=== PATIENT | male | born 1995 | race African-American/Black ===

== ENCOUNTER 2017-08-16 00:43 | Emergency (ER) | payer OTHER ==
[~2017-08-16] VITALS: Ht 180.3 cm; Wt 77.8 kg
[~2017-08-16 00:43] MED LIST: INDOCIN25 MG PO; KEFLEX500 MG PO; NAPROSYN500 MG PO; ULTRACET1 TABLET PO
[2017-08-16 01:26] LABS: HEMATOCRIT 40.3 % (38.0-50.0); HEMOGLOBIN 13.5 G/DL (12.5-16.6); MCH 28.5 PG (29.0-34.0); MCHC 33.5 G/DL (30.0-36.0); PLATELET COUNT 163 K/uL (156-360); RBC DIS.WIDTH-CV 13.4 % (11.8-14.6); RBC DIS.WIDTH-SD 41.8 % (39-53); RED BLOOD COUNT 4.74 M/uL (4.00-5.50); WHITE BLOOD COUNT 6.9 K/uL (4.1-10.2)
[2017-08-16 01:31] LABS: CHLORIDE 110 mEq/L (99-109); POTASSIUM 3.2 mEq/L (3.7-5.4); SODIUM 144 mEq/L (136-147)
[2017-08-16 01:32] LABS: MAGNESIUM 2.1 mg/dL (1.3-2.7)
[2017-08-16 01:33] LABS: GLUCOSE 122 mg/dL (70-99)
[2017-08-16 01:37] LABS: CREATININE 0.8 mg/dL (0.6-1.3); GFR ESTIMATE (CALCULATED) > 59 mL/min/ (58.99-99999); SERUM ETHYL ALCOHOL < 10 mg/dL
[2017-08-16 01:38] LABS: UREA NITROGEN (BUN) 10 mg/dL (9-23)
[2017-08-16 01:40] LABS: CREATINE KINASE 557 IU/L (1-294)
[2017-08-16 01:46] LABS: TROP-I INTERPRETATION NEGATIVE; TROPONIN-I < 0.01 ng/mL (0.0-0.30)
[2017-08-16 02:42] VITALS: BP 127/62
== END 2017-08-16 02:45 | disposition home or self-care (01) ==
LOC: EME → EDBD 00:43 → EME 02:45
PROVIDERS: Emergency Medicine
DX: M62.82 Rhabdomyolysis (principal); E87.6 Hypokalemia
CPT/HCPCS: 80048; 82550; 83735; 84484; 85027; 93005; G0480; J7030